=== PATIENT | female | born 1955 | race Caucasian/White ===

== ENCOUNTER 2017-11-28 17:51 | Emergency (ER) | payer SELFPAY ==
[2017-11-28] MEDS ORDERED: DIPH,PERTUSS(ACELL),TET VAC/PF 0.5 ML DISP.SYRIN IM ONE (18:00)
[2017-11-28 18:06] VITALS: BP 108/71
[2017-11-28] MEDS ORDERED: BUPIVACAINE HCL/PF 5 MG/ML 10ML VIAL IJ ONE (18:20)
--- NOTE | 2017-11-28 18:21 | Diagnostic Imaging Report ---
SHELLIE DALE (ERP PROGRAMMER) - ER [facility] [address] [facility].[address] [address] Report Submission Date: November 28, 2017 6:17:53 PM CDT Patient Study Name: TERESA FOREMAN Date: November 28, 2017 5:59:43 PM CDT Modality Type: DX Gender: F Description: UPPER EXTREMITY : 59 Institution: [facility] Physician: SHELLIE DALE (ERP PROGRAMMER) - ER Right hand, 3 views HISTORY Dog bite, swelling, pain. FINDINGS There is no fracture, dislocation or abnormal bone destruction. There is no opaque retained foreign body. IMPRESSION No acute abnormality. Electronically signed on November 28, 2017 6:17:53 PM CDT by: Moi HIGHTOWER
--- NOTE | 2017-11-28 18:54 | ED Physician Documentation ---
Animal Bite - HISTORIAN Historian: patient - HPI Stated Complaint: Animal Bite Chief Complaint: Animal Bite Onset: today Where: work Animal: dog Appearance of Animal: appeared well Animal's Immunization Status: unknown Observation/ Capture of Animal: other (Police going to superannuation clerk's home. ) Context of Attack: entered animals domain Severity of Injury: bitten Location of Injury: R upper extremity Associated Symptoms: pain, pain with movement Further Comments: yes (62 year old female patient presents with dog bite to right hand. 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) - ROS CONST: none EYES/ENT: none CVS/RESP: none NEURO: none GI/: none MS/SKIN/LYMPH: none - PAST HX Past History: none Immunizations: tetanus (given in ER today) Allergies/Adverse Reactions: Allergies Allergy/AdvReac Type Severity Reaction Status Date / Time No Known Allergies Allergy Verified 11/28/17 18:06 Home Medications: Ambulatory Orders Medication Instructions Recorded Amoxicillin/Potassium Clav 1 each PO BID #14 tablet 11/28/17 [Augmentin 875-125 Tablet] - SOCIAL HX Smoking History: non-smoker - FAMILY HX Family History: denies: none - VITAL SIGNS Vital Signs: Vital Signs Temp Pulse Resp BP Pulse Ox 98.1 F 88 17 108/71 97 11/28/17 19:05 11/28/17 19:05 11/28/17 19:05 11/28/17 19:05 11/28/17 19:05 - REVIEWED ASSESSMENTS Nursing Assessment Reviewed: Yes Vitals Reviewed: Yes Procedures Wound Location: other (right 3rd digit) Wound's Depth, Shape: linear Wound Explored: no foreign body removed Suture Size/Type: 5:0 Number of Sutures: 3 Layer Closure?: No Sterile Dressing Applied?: Yes Splint Applied?: No Progress: Procedure Note laceration: Length: 1 cm laceration Location: right 3rd digit Wound cleaned with chlorhexidine and NS; bupivacaine .5% - 2 cc injected in wheel Irrigated with 700 NS; no foreign body noted Closed using sterile technique, interrupted sutures 5.0 ethilon x 3 stitches Wound edges well approximated. Tetanus: given in ER Patient tolerated procedure well; reviewed discharge instructions - verbalized understanding. ED Results Lab/Radiology - Orders Orders: ED Orders Category Date Time Status Apply/change dressing NOW Care 11/28/17 19:00 Active Cleanse with NS and Chlorhexid 1T Care 11/28/17 18:00 Active HAND 3 VIEWS OR MORE [RAD] Stat Exams 11/28/17 Completed Bupivacaine HCl/Pf [Marcaine 0.5%] Med 11/28/17 18:20 Discontinued 5 mg IJ NOW ONE Diph,Pertuss(Acell),Tet Vac/Pf [Adacel] Med 11/28/17 18:00 Discontinued 0.5 ml IM .ONCE ONE Neomycin/Bacitracin/Polymyxinb [Triple Antibiotic Med 11/28/17 19:00 Discontinued Ointment] 1 each TP NOW ONE Animal Bite Physical Exam - Physical Exam General Appearance: mild distress Neuro/Vascular/Tendon: no vascular compromise, oriented x3, sensation nml, CN's nml as tested, ROM nml Psych: mood/affect nml HEENT: atraumatic, MEGHA Neck: uninjured, nml inspection Resp/CVS: chest non-tender, breath sounds nml, heart sounds nml, no resp. distress, lungs clear, reg. rate & rhythm Abdomen: uninjured,nml inspection, non-tender Back: uninjured, nml inspection Extremities: other (right hand 3rd digit with abrasion over DIP joint; 1 cm laceration to lateral aspect of 3rd joint, proximal to DIP joint; ROM intact - full flexion and extension at all joints of 3rd digit; no FB visualized, no tendon visualized. ) Discharge Clincal Impression: Dog bite of right hand Qualifiers: Encounter type: initial encounter Qualified Code(s): S61.451A - Open bite of right hand, initial encounter; W54.0XXA - Bitten by dog, initial encounter; W54.0XXA - Bitten by dog, initial encounter Laceration of middle finger Qualifiers: Encounter type: initial encounter Damage to nail status: without damage Foreign body presence: without foreign body Laterality: right Qualified Code(s) : S61.212A - Laceration without foreign body of right middle finger without damage to nail, initial encounter Abrasion of middle finger Qualifiers: Encounter type: initial encounter Qualified Code(s): S60.418A - Abrasion of other finger, initial encounter Prescriptions: Amoxicillin/Potassium Clav [Augmentin 875-125 Tablet] 1 each PO BID #14 tablet Referrals: Sharon Kebede MD [Primary Care Provider] - 2 Days Additional Instructions: Keep the wound clean and dry until it has healed. You can wash or shower after 24 hours. Do not soak the wound in water and make sure it is dry afterwards (gently pat the area dry with a clean towel). Do not get into a swimming pool, hot tub, klein or river until your stitches are removed. To remove your dressing, gently pull it off. If needed, you can dampen it with water then gently pull it off. Clean the laceration twice a day with hibiclens and rinse with water clean away any scabbed area Apply thin coat of antibiotic ointment after cleaning the wound. Cover with non-adherent bandage if able. If you have pain, take simple pain relief medication such as Tylenol or ibuprofen. If bandages or dressings get wet, they will need to be changed. Call your doctor for any signs of symptom of infection redness, drainage, pain. Have your stitches removed at your doctors office in 7-10 days. Discharged with bactroban ointment apply a thin coat twice a day. Condition: Stable Disposition: 01 HOME, SELF-CARE Decision to Admit: NO Decision Time: 18:54
[2017-11-28] MEDS ORDERED: NEOMYCIN/BACITRACIN/POLYMYXINB 1 EACH OINT.PACK TP ONE (19:00)
== END 2017-11-28 19:05 | disposition home or self-care (01) ==
LOC: ED 17:51
DX: S61.451A Open bite of right hand, initial encounter (principal); W54.0XXA Bitten by dog, initial encounter; S61.212A Laceration without foreign body of right middle finger without damage to nail, initial encounter; S60.418A Abrasion of other finger, initial encounter; Z04.2 Encounter for examination and observation following work accident
CPT/HCPCS: 73130; J7030; 12001; 96372

== ENCOUNTER 2018-07-04 11:43 | Outpatient (CLI) | payer OTHER ==
--- NOTE | 2018-07-05 04:16 | Diagnostic Imaging Report ---
ERICK KOHLER [facility] [address] [address] Report Submission Date: Jul 04, 2018 12:30:29 PM MEDICAL TECHNICAL WRITER Patient Study Name: TERESA FOREMAN Date: Jul 04, 2018 12:07:46 PM MEDICAL TECHNICAL WRITER Modality Type: DX Gender: F Description: LOWER EXTREMITY : 59 Institution: [facility] Physician: ERICK KOHLER Right ankle History: Pain after fall Three views of the right ankle were obtained which demonstrate the presence an acute and complete, transversely oriented fracture involving the distal shaft of the fibula without displacement or distraction. The distal tibia is intact. The talar dome and ankle mortise are intact. Impression: Acute, complete, transversely oriented fracture involving the distal shaft of the fibula without displacement or distraction. Lateral soft tissue swelling. Electronically signed on Jul 04, 2018 12:30:29 PM MEDICAL TECHNICAL WRITER by: Joanne HIGHTOWER
== END 2018-07-04 14:20 ==
LOC: RAD 11:43
PROVIDERS: ATTEND Family Medicine
DX: S82.491A Other fracture of shaft of right fibula, initial encounter for closed fracture (principal); W19.XXXA Unspecified fall, initial encounter; Y93.9 Activity, unspecified; Y92.9 Unspecified place or not applicable
CPT/HCPCS: 73610

== ENCOUNTER 2018-07-11 12:50 | Outpatient (CLI) | payer OTHER ==
--- NOTE | 2018-07-11 14:30 | Diagnostic Imaging Report ---
ERICK KOHLER [facility] [address] [facility].[address] [address] Report Submission Date: Jul 11, 2018 1:24:22 PM WINDOW DRESSER Patient Study Name: TERESA FOREMAN Date: Jul 11, 2018 12:54:40 PM WINDOW DRESSER Modality Type: DX Gender: F Description: LOWER EXTREMITY : 59 Institution: [facility] Physician: ERICK KOHLER Examination: Plain film right ankle History: FOLLOW UP FOR ANKLE FX (Hx) Comparison exam: 04 July 2018 Findings: 3 views of the right ankle demonstrates osteopenia. Lucency involving the distal fibula with minimal callus formation. Remaining cortical margins appear to be intact. Lateral soft tissue swelling. No joint effusion. Impression: Early healing distal fibular fracture. Electronically signed on Jul 11, 2018 1:24:22 PM WINDOW DRESSER by: Al HIGHTOWER
== END 2018-07-11 12:55 | disposition home or self-care (01) ==
LOC: RAD 12:50
PROVIDERS: ATTEND Family Medicine
DX: S82.831D Other fracture of upper and lower end of right fibula, subsequent encounter for closed fracture with routine healing (principal)
CPT/HCPCS: 73610

== ENCOUNTER 2018-07-25 14:02 | Outpatient (CLI) | payer OTHER ==
--- NOTE | 2018-07-26 06:34 | Diagnostic Imaging Report ---
ERICK KOHLER [facility] [address] [facility].[address] [address] Report Submission Date: Jul 25, 2018 5:38:46 PM ROD PULLER Patient Study Name: TERESA FOREMAN Date: Jul 25, 2018 2:05:46 PM ROD PULLER Modality Type: DX Gender: F Description: LOWER EXTREMITY : 59 Institution: [facility] Physician: ERICK KOHLER Right ankle History: Follow up fracture Three views of the right ankle were obtained and comparison made with July 11, 2018 Since the prior radiographs, there is new healing bone formation surrounding the fracture site. There is no displacement. Impression: There is new healing bone formation surrounding the nondisplaced fracture of the distal fibula when compared with July 11, 2018. Electronically signed on Jul 25, 2018 5:38:46 PM ROD PULLER by: Joanne HIGHTOWER
== END 2018-07-25 14:09 ==
LOC: RAD 14:02
PROVIDERS: ATTEND Family Medicine
DX: S82.434D Nondisplaced oblique fracture of shaft of right fibula, subsequent encounter for closed fracture with routine healing (principal)
CPT/HCPCS: 73610

== ENCOUNTER 2018-08-22 08:17 | Outpatient (CLI) | payer OTHER ==
--- NOTE | 2018-08-22 10:14 | Diagnostic Imaging Report ---
ERICK KOHLER [facility] [address] [facility].[address] [address] Report Submission Date: Aug 22, 2018 9:27:55 AM COAL SHOVELER Patient Study Name: TERESA FOREMAN Date: Aug 22, 2018 8:32:05 AM COAL SHOVELER Modality Type: DX Gender: F Description: ANKLE 3 OR MORE VIEWS : 59 Institution: [facility] Physician: ERICK KOHLER Examination: Plain film right ankle History: FOLLOW UP RT ANKLE FX Comparison exam: 2018 Findings: 3 views of the right ankle demonstrates osteopenia. Distal fibular fracture with increased callus formation. Tibia and talar dome appear to be intact. No soft tissue abnormality. Impression: Continued healing distal fibular fracture. Electronically signed on Aug 22, 2018 9:27:55 AM COAL SHOVELER by: Al HIGHTOWER
== END 2018-08-22 08:30 ==
LOC: RAD 08:17
PROVIDERS: ATTEND Family Medicine
DX: S82.434D Nondisplaced oblique fracture of shaft of right fibula, subsequent encounter for closed fracture with routine healing (principal)
CPT/HCPCS: 73610

== ENCOUNTER 2019-06-26 13:46 | Emergency (ER) | payer OTHER ==
--- NOTE | 2019-06-26 13:56 | ED Physician Documentation ---
Upper Extremity Injury - HISTORIAN Historian: patient - HPI Stated Complaint: left wrist pain Chief Complaint: Upper Extremity Injury Additional Information: Patient presents to ED with left wrist pain after falling off a ladder, landing on outstretched hand. Patient reports being on the ladder caulking some window she she lost her balance and fell ten feet to the lawn. She denies hitting her head/loss of consciousness. There is a small abrasion to her left elbow. Last tetanus was 2016. Onset: just prior to arrival Where: home Severity: moderate Duration: persistent since Context: fall Associated Symptoms: denies: tingling, numbness distally, feeling loss Modifying Factors: pain on movement - ROS CONST: no problems CVS/RESP: denies: chest pain, shortness of breath NEURO: denies: headache MS/SKIN/LYMPH: denies: neck pain GI/: denies: nausea, vomiting - PAST HX Past History: Rt handed Allergies/Adverse Reactions: Allergies Allergy/AdvReac Type Severity Reaction Status Date / Time No Known Drug Allergies Allergy Verified 06/26/19 13:57 Home Medications: Ambulatory Orders Medication Instructions Recorded Hydrocodone/Acetaminophen [[place] 1 each PO Q6 PRN #15 tablet 06/26/19 10-325 Tablet] - SOCIAL HX Smoking History: non-smoker Alcohol Use: none Drug Use: none - FAMILY HX Family History: none - VITAL SIGNS Vital Signs: Vital Signs Temp Pulse Resp BP Pulse Ox 97.7 F 58 L 14 146/74 99 06/26/19 15:30 06/26/19 15:30 06/26/19 15:30 06/26/19 15:30 06/26/19 15:30 - REVIEWED ASSESSMENTS Nursing Assessment Reviewed: Yes Vitals Reviewed: Yes ED Results Lab/Radiology - Orders Orders: ED Orders Category Date Time Status Volar/Dorsal Splint 1T Care 06/26/19 14:31 Active WRIST 3 VIEWS OR MORE [RAD] Stat Exams 06/26/19 Completed oxyCODONE HCL/ACETAMINOPHEN [Percocet 10-325] Med 06/26/19 13:58 Discontinued 1 each PO NOW ONE oxyCODONE HCL/ACETAMINOPHEN [Percocet 5-325] Med 06/26/19 14:03 Discontinued 1 each PO NOW ONE Upper Extremity Injury Physic - Physical Exam General Appearance: no acute distress, alert Hand: normal inspection, non-tender Wrist: bone tenderness, deformity, ecchymosis, limited ROM, soft tissue tenderness Elbow/Forearm: normal inspection Shoulder: normal inspection Neuro/Vascular/Tendon: no vascular compromise, sensation nml Skin: warm,dry Head/ENT: nml inspection Neck/Back: nml inspection Resp/CVS: chest non-tender, breath sounds nml, heart sounds nml Abdomen: non-tender, pelvis stable Discharge Clincal Impression: Fracture of left distal radius Qualifiers: Encounter type: initial encounter Fracture type: closed Fracture morphology: unspecified fracture morphology Qualified Code(s): S52.502A - Unspecified fracture of the lower end of left radius, initial encounter for closed fracture Prescriptions: Hydrocodone/Acetaminophen [[place] 10-325 Tablet] 1 each PO Q6 PRN #15 tablet PRN Reason: wrist pain Referrals: Sharon Kebede MD [Primary Care Provider] - 2 Days Additional Instructions: 1. Call [facility] as soon as possible to get an appointment within 3 days. [address] [place] [address] [place] 2. Keep splint in place until Orthopedics evaluate 3. Ibuprofen 600mg every 6 hours as needed for pain 4. [place] every 6 hours as needed for break through pain. 5. Keep arm elevated to reduce swelling. 6. No lifting with left hand/arm 7. Follow up with Orthopedics within 3-5 days 8. Follow up with ER for new or worsening symptoms Condition: Stable Disposition: 01 HOME, SELF-CARE Decision to Admit: NO Date of Decison to Admit: 06/26/19 Decision Time: 18:30
[2019-06-26] MEDS: oxyCODONE/ACETAMINOPHEN 5/325 TABLET PO ONE (14:05)
--- NOTE | 2019-06-26 14:25 | Diagnostic Imaging Report ---
PATIENT MR#: [id number] PATIENT PATIENT NAME: TERESA FOREMAN DATE OF : 1955 REFERRING PHYSICIAN: Rose White EXAM DATE: 06/26/2019 ACCESSION NUMBER: [id number] EXAM DESCRIPTION: WRIST 3 VIEWS OR MORE Exam: Left wrist. History: Fall. PA, lateral and oblique view of the left wrist are submitted. Acute fracture through the distal radial metaphysis is noted. Fracture line does appear to extend in to the joint space. No other signs of fracture or dislocation is identified. Impression: Acute fracture of the distal radial metaphysis. Read by: Dr. Warner Garcia Transcribed by: Transcribed Date: Electronically signed by: Dr. Warner Garcia Date signed: 06/26/2019 2:24:45 PM
[2019-06-26 16:11] VITALS: BP 146/74
== END 2019-06-26 15:05 | disposition home or self-care (01) ==
LOC: ED 13:46
DX: S52.502A Unspecified fracture of the lower end of left radius, initial encounter for closed fracture (principal); W11.XXXA Fall on and from ladder, initial encounter
CPT/HCPCS: 73110; 99283; 99284; A9270